=== PATIENT | male | born 1975 | race Caucasian/White ===

== ENCOUNTER 2019-11-14 10:24 | Emergency (ER) | payer MEDICARE, OTHER ==
[~2019-11-14] VITALS: Ht 182.9 cm; Wt 63.5 kg
[2019-11-14] MEDS ORDERED: TETRACAINE HCL 0.5% OPTH SOLN 4 ML BTL ONE (10:34)
[2019-11-14] MEDS ORDERED: TETANUS/DIPHTHERIA TOX ADULT 0.5 ML SYR ONE (10:35)
[2019-11-14] MEDS ORDERED: FLUORESCEIN SOD(OPTH) 1 MG STRP ONE (10:35)
--- NOTE | 2019-11-14 10:41 | Emergency Department Note ---
History of Present Illnes History of Present Illness History of Present Illness This is a 44 year old male presents to the ED for R eye pain of one week duration. States that he was near an [employer] and was not wearing protection . Project Officer Required: No Onset (how long ago): week(s) Radiation: Reports non-radiation Severity: moderate Duration (how long): week(s) Timing of current episode: constant Progression: worsening Chronicity: new Relieving factors: none Exacerbating factors: none Associated symptoms: Reports denies other symptoms Past Medical/Family History Physician Review I have reviewed the patient's past medical and family history. Any updates have been documented here. Past Medical History Recent Fever: No Clinical Suspicion of Infectio: No New/Unexplained Change in Ment: No Other Medical History: KIDNEY FAILURE R/T CHEMICAL EXPOSURE, ACID REFLUX Other Surgery: DIALYSIS FISTULA Social History Smoking Cessation: Current every day smoker Alcohol Use: Social Any Illegal Drug Use: No Other Last Tetanus: UNK Physical Exam Related Data Allergies: Coded Allergies: clindamycin (Verified Allergy, Severe, ANAPHYLACTIC, 01/31/16) iodine (Verified Allergy, Intermediate, RASH, 01/31/16) penicillin (Verified Allergy, Intermediate, HIVES, 01/31/16) vancomycin (Verified Allergy, Intermediate, RED MAN SYNDROME, 01/31/16) lidocaine (Verified Allergy, Unknown, 11/14/19) Uncoded Allergies: RUBBING ALCOHOL (Allergy, Intermediate, RASH, 01/31/16) Physical Exam CONSTITUTIONAL HENT EYES NECK PULMONARY CARDIOVASCULAR GASTROINTESTINAL GENITOURINARY SKIN MUSCULOSKELETAL NEUROLOGICAL PSYCHOLOGICAL Procedures Foreign Body - Eye Location: right eye Foreign body: metal Evidence of corneal penetratio: No Technique: cotton tip swab Patient tolerated procedure: other Complications: incomplete removal Assessment & Plan Medical Decision Making [facility] 44 yom presents to the ED for eye pain of 1 week duration. Diff Dx: UV keratitis , uveitis, corneal abrasion , corneal ulcer, FB in eye. Plan to discharge with f/u with ophto. Rx keflex Reassessment Reassessment Patient refuses tetanus booster; Concerned for further kidney damage. Patient with possible lidocaine allergy, tetracaine unable to be placed in R eye. Patient uncooperative with exam during FB removal. Partial FB removed. Patient to f/u with ophthomology Assessment & Plan Final Impression: (1) Ultraviolet keratitis of right eye (2) Foreign body, eye Medications in the ED Tetracaine HCl 4 ml STK-MED ONCE .ROUTE ; Start 11/14/19 at 10:34; Stop 11/14/19 at 10:29; Status DC Fluorescein Sodium 1 mg STK-MED ONCE .ROUTE ; Start 11/14/19 at 10:35; Stop 11/14/19 at 10:29; Status DC Tetanus/ Diphtheria Toxoids 0.5 ml STK-MED ONCE .ROUTE ; Start 11/14/19 at 10:35; Stop 11/14/19 at 10:29; Status DC MARY KNOX DO Nov 14, 2019 10:40
[2019-11-14] MEDS ORDERED: HYDROCODONE/APAP 10MG-325MG TAB PO NR (10:45)
[2019-11-14] MEDS ORDERED: TETANUS/DIPHTHERIA TOX ADULT 0.5 ML SYR IM NR (11:00)
[2019-11-14] MEDS ORDERED: ERYTHROMYCIN (OPTH) 3.5 GM OINT OP ONE (11:32)
== END 2019-11-14 10:45 | disposition home or self-care (01) ==
LOC: ER 10:24
DX: H57.11 Ocular pain, right eye (principal); H16.131 Photokeratitis, right eye; T15.91XA Foreign body on external eye, part unspecified, right eye, initial encounter; W89.8XXA Exposure to other man-made visible and ultraviolet light, initial encounter; I12.0 Hypertensive chronic kidney disease with stage 5 chronic kidney disease or end stage renal disease; N18.6 End stage renal disease; Z99.2 Dependence on renal dialysis
CPT/HCPCS: 90714; 99284